=== PATIENT | male | born 1955 | race Caucasian/White ===

== ENCOUNTER 2022-12-07 08:04 | Day surgery (SDC) | payer MEDICARE, OTHER ==
[2022-12-07 08:49] VITALS: BMI 34.1
[2022-12-07] MEDS ORDERED: KETAMINE HCL 500 MG/10 ML VIAL ONE (10:12)
[2022-12-07] MEDS ORDERED: PROPOFOL 20 ML ONE (10:22)
[2022-12-07] MEDS ORDERED: ONDANSETRON 4 MG/2 ML VIAL IVPUSH PRN (11:53)
[2022-12-07] MEDS ORDERED: LACTATED RINGERS SOLUTION 1,000 ML IV SCH (12:00)
[2022-12-07 12:01] VITALS: RESP 18; TEMP 97
[2022-12-07 12:03] VITALS: BP 122/62; PULSE 87
== END 2022-12-07 11:45 | disposition home or self-care (01) ==
LOC: FECT 08:04
PROVIDERS: ATTEND Psychiatry & Neurology Psychiatry
PROC: GZB4ZZZ Other Electroconvulsive Therapy (ICD-10-PCS; principal; 2022-12-07 10:30)
DX: F33.2 Major depressive disorder, recurrent severe without psychotic features (principal)
CPT/HCPCS: 90870; 94760

== ENCOUNTER 2022-12-08 08:58 | Day surgery (SDC) | payer MEDICARE, OTHER ==
[2022-12-08 09:17] VITALS: BMI 34.0
[2022-12-08] MEDS ORDERED: PROPOFOL 40 ML ONE (09:42)
[2022-12-08] MEDS ORDERED: SUCCINYLCHOLINE CHLORIDE 200 MG/10 ML SYRINGE ONE (09:42)
[2022-12-08] MEDS ORDERED: ONDANSETRON 4 MG/2 ML VIAL ONE (09:42)
[2022-12-08] MEDS ORDERED: LACTATED RINGERS SOLUTION 1,000 ML IV SCH (10:15)
[2022-12-08 10:44] VITALS: TEMP 97.7
[2022-12-08 10:48] VITALS: BP 124/76; PULSE 84; RESP 18
== END 2022-12-08 10:53 | disposition home or self-care (01) ==
LOC: FECT 08:58
PROVIDERS: ATTEND Psychiatry & Neurology Psychiatry
PROC: GZB4ZZZ Other Electroconvulsive Therapy (ICD-10-PCS; principal; 2022-12-08 09:51)
DX: F33.2 Major depressive disorder, recurrent severe without psychotic features (principal)
CPT/HCPCS: 90870; 94760

== ENCOUNTER 2022-12-12 09:46 | Day surgery (SDC) | payer MEDICARE, OTHER ==
[2022-12-08 11:04] VITALS: BMI 34.0
[2022-12-12 11:28] VITALS: TEMP 98.4
[2022-12-12 12:01] VITALS: RESP 18
[2022-12-12 12:17] VITALS: BP 133/73; PULSE 88
== END 2022-12-12 12:15 | disposition home or self-care (01) ==
LOC: FECT 09:46
PROVIDERS: ATTEND Psychiatry & Neurology Psychiatry
PROC: GZB4ZZZ Other Electroconvulsive Therapy (ICD-10-PCS; principal; 2022-12-12 10:58)
DX: F32.A Depression, unspecified (principal)
CPT/HCPCS: 90870; 94760

== ENCOUNTER 2022-12-15 08:44 | Day surgery (SDC) | payer MEDICARE, OTHER ==
[2022-12-08 11:05] VITALS: BMI 34.0
[2022-12-15 10:56] VITALS: RESP 18
[2022-12-15 11:47] VITALS: BP 126/75; PULSE 86; TEMP 97.2
== END 2022-12-15 11:35 | disposition home or self-care (01) ==
LOC: FECT 08:44
PROVIDERS: ATTEND Psychiatry & Neurology Psychiatry
PROC: GZB4ZZZ Other Electroconvulsive Therapy (ICD-10-PCS; principal; 2022-12-15 09:57)
DX: F32.A Depression, unspecified (principal)
CPT/HCPCS: 90870; 94760

== ENCOUNTER 2022-12-19 11:06 | Day surgery (SDC) | payer MEDICARE, OTHER ==
[2022-12-08 12:10] VITALS: BMI 34.0
[2022-12-19] MEDS ORDERED: KETAMINE HCL 500 MG/10 ML VIAL ONE (12:37)
[2022-12-19 13:58] VITALS: RESP 18; TEMP 97.1
[2022-12-19 14:00] VITALS: BP 130/72; PULSE 94
== END 2022-12-19 14:14 | disposition home or self-care (01) ==
LOC: FECT 11:06
PROVIDERS: ATTEND Psychiatry & Neurology Psychiatry
PROC: GZB4ZZZ Other Electroconvulsive Therapy (ICD-10-PCS; principal; 2022-12-19 13:03)
DX: F32.A Depression, unspecified (principal)
CPT/HCPCS: 90870; 94760

== ENCOUNTER 2022-12-21 09:18 | Day surgery (SDC) | payer MEDICARE, OTHER ==
[2022-12-08 12:28] VITALS: BMI 34.0
[~2022-12-21 09:18] MED LIST: LACTATED RINGERS SOLUTION 1,000 ML IV SCH; ONDANSETRON 4 MG/2 ML VIAL IVPUSH PRN
[2022-12-21 10:08] VITALS: RESP 16
[2022-12-21] MEDS ORDERED: PROPOFOL 20 ML ONE (10:20)
[2022-12-21] MEDS ORDERED: SUCCINYLCHOLINE CHLORIDE 200 MG/10 ML SYRINGE ONE (10:20)
[2022-12-21] MEDS ORDERED: KETOROLAC TROMETHAMINE 30 MG/1 ML VIAL ONE (10:20)
[2022-12-21] MEDS ORDERED: ONDANSETRON 4 MG/2 ML VIAL ONE (10:20)
[2022-12-21 11:58] VITALS: TEMP 98.4
[2022-12-21 12:00] VITALS: BP 133/91; PULSE 88
== END 2022-12-21 12:05 | disposition home or self-care (01) ==
LOC: FECT 09:18
PROVIDERS: ATTEND Psychiatry & Neurology Psychiatry
PROC: GZB4ZZZ Other Electroconvulsive Therapy (ICD-10-PCS; principal; 2022-12-21 10:00)
DX: F33.2 Major depressive disorder, recurrent severe without psychotic features (principal)
CPT/HCPCS: 90870; 94760

== ENCOUNTER 2022-12-22 09:21 | Day surgery (SDC) | payer MEDICARE, OTHER ==
[2022-12-08 12:26] VITALS: BMI 34.0
[2022-12-22 11:32] VITALS: RESP 16; TEMP 98.2
[2022-12-22 11:55] VITALS: BP 140/80; PULSE 86
== END 2022-12-22 11:55 | disposition home or self-care (01) ==
LOC: FECT 09:21
PROVIDERS: ATTEND Psychiatry & Neurology Psychiatry
PROC: GZB4ZZZ Other Electroconvulsive Therapy (ICD-10-PCS; principal; 2022-12-22 10:33)
DX: F32.A Depression, unspecified (principal)
CPT/HCPCS: 90870; 94760

== ENCOUNTER 2022-12-26 09:10 | Day surgery (SDC) | payer MEDICARE, OTHER ==
[2022-12-12 16:45] VITALS: BMI 34.0
[2022-12-26 10:31] VITALS: TEMP 98.1
[2022-12-26 11:03] VITALS: BP 124/88; RESP 16
[2022-12-26] MEDS ORDERED: PROMETHAZINE HCL 25 MG/1 ML VIAL IVPB PRN (11:05)
[2022-12-26] MEDS ORDERED: ACETAMINOPHEN 500 MG TABLET (FP) PO PRN (11:05)
[2022-12-26 11:07] VITALS: PULSE 79
[2022-12-26] MEDS ORDERED: LACTATED RINGERS SOLUTION 1,000 ML IV SCH (11:15)
== END 2022-12-26 11:11 | disposition home or self-care (01) ==
LOC: FECT 09:10
PROVIDERS: ATTEND Psychiatry & Neurology Psychiatry
PROC: GZB4ZZZ Other Electroconvulsive Therapy (ICD-10-PCS; principal; 2022-12-26 10:04)
DX: F32.A Depression, unspecified (principal)
CPT/HCPCS: 90870; 94760

== ENCOUNTER 2022-12-29 09:39 | Day surgery (SDC) | payer MEDICARE, OTHER ==
[2022-12-20 09:03] VITALS: BMI 34.0
[2022-12-29 11:55] VITALS: RESP 18; TEMP 97.8
[2022-12-29 11:57] VITALS: BP 145/84; PULSE 90
== END 2022-12-29 12:10 | disposition home or self-care (01) ==
LOC: FECT 09:39
PROVIDERS: ATTEND Psychiatry & Neurology Psychiatry
PROC: GZB4ZZZ Other Electroconvulsive Therapy (ICD-10-PCS; principal; 2022-12-29 10:47)
DX: F32.A Depression, unspecified (principal)
CPT/HCPCS: 90870; 94760

== ENCOUNTER 2023-01-02 09:04 | Day surgery (SDC) | payer MEDICARE, OTHER ==
[2022-12-26 15:12] VITALS: BMI 34.0
[2023-01-02 11:36] VITALS: TEMP 97.8
[2023-01-02 11:38] VITALS: BP 120/82; PULSE 86; RESP 20
== END 2023-01-02 11:50 | disposition home or self-care (01) ==
LOC: FECT 09:04
PROVIDERS: ATTEND Psychiatry & Neurology Psychiatry
PROC: GZB4ZZZ Other Electroconvulsive Therapy (ICD-10-PCS; principal; 2023-01-02 10:44)
DX: F32.A Depression, unspecified (principal)
CPT/HCPCS: 90870; 94760

== ENCOUNTER 2023-01-04 08:34 | Day surgery (SDC) | payer MEDICARE, OTHER ==
[2023-01-02 08:19] VITALS: BMI 34.0
[2023-01-04 09:53] VITALS: TEMP 97.3
[2023-01-04 10:26] VITALS: BP 122/70; PULSE 82; RESP 18
== END 2023-01-04 10:26 | disposition home or self-care (01) ==
LOC: FECT 08:34
PROVIDERS: ATTEND Psychiatry & Neurology Psychiatry
PROC: GZB4ZZZ Other Electroconvulsive Therapy (ICD-10-PCS; principal; 2023-01-04 09:31)
DX: F32.A Depression, unspecified (principal)
CPT/HCPCS: 90870; 94760

== ENCOUNTER 2023-01-05 10:10 | Day surgery (SDC) | payer MEDICARE, OTHER ==
[2022-12-29 15:02] VITALS: BMI 34.0
[2023-01-05] MEDS ORDERED: PROPOFOL 20 ML ONE (11:50)
[2023-01-05] MEDS ORDERED: ONDANSETRON 4 MG/2 ML VIAL ONE (11:51)
[2023-01-05] MEDS ORDERED: SUCCINYLCHOLINE CHLORIDE 200 MG/10 ML SYRINGE ONE (11:51)
[2023-01-05] MEDS ORDERED: KETOROLAC TROMETHAMINE 30 MG/1 ML VIAL ONE (11:51)
[2023-01-05 13:27] VITALS: PULSE 100; RESP 16; TEMP 98.4
[2023-01-05 13:35] VITALS: BP 136/84
== END 2023-01-05 13:30 | disposition home or self-care (01) ==
LOC: FECT 10:10
PROVIDERS: ATTEND Psychiatry & Neurology Psychiatry
PROC: GZB4ZZZ Other Electroconvulsive Therapy (ICD-10-PCS; principal; 2023-01-05 11:58)
DX: F32.A Depression, unspecified (principal)
CPT/HCPCS: 90870; 94760